=== PATIENT | male | born 1970 | race Caucasian/White ===

== ENCOUNTER 2019-04-02 18:19 | Emergency (ER) | payer OTHER ==
[~2019-04-02] VITALS: Ht 170.2 cm; Wt 113.4 kg
[2019-04-02 18:27] VITALS: BP 146/79
--- NOTE | 2019-04-02 18:34 | NUR ---
WHEELCHAIR ASSISTED PT TO WAIT IN THE LOBBY.
--- NOTE | 2019-04-02 19:11 | NUR ---
PT TAKEN TO BED 5 VIA W/C.
--- NOTE | 2019-04-02 19:15 | NUR ---
48 Y/O PT. C/O INTERMITTENT SHARP MEDIAL AREA PAIN OF RIGHT KNEE 8/10 FOR ONE WEEK. PT. STATES THAT THE PAIN WORSENED TODAY AND EXCERBATED BY WALKING OR BEARING WEIGHT. DENIES TRAUMA OR INJURY TO THE RIGHT KNEE, PT REPORTS HE USED HIS RIGHT LEG MORE AT WORK. NO OBVIOUS EDEMA NOTICED. PEDAL PULSES +2. ERMD MADE AWARE OF STATUS. SIDE [id number]. WILL CONTINUE TO MONITOR. PMH: HEART MURMURS MEDS: DENIES
[2019-04-02] MEDS ORDERED: KETOROLAC 60 MG/2 ML VIAL IM ONE (20:50)
--- NOTE | 2019-04-02 21:45 | NUR ---
PT RIGHT KNEE WRAPPED WITH TWO 6 INCH YESSICA WRAPS CMS CHECK BEFORE AND AFTER AND WNL
[2019-04-02 22:13] VITALS: BP 146/79
--- NOTE | 2019-04-02 22:13 | NUR ---
Patient discharged with v/s stable. Written and verbal after care instructions given and explained. Patient alert, oriented and verbalized understanding of instructions. Ambulatory with steady gait. All questions addressed prior to discharge. ID band removed. Patient advised to follow up with PMD. Rx of NAPROSYN given. Patient educated on indication of medication including possible reaction and side effects. Opportunity to ask questions provided and answered. DISCHARGED BY DR. HUGO.
== END 2019-04-02 22:13 | disposition home or self-care (01) ==
LOC: MED 18:19
DX: S83.91XA Sprain of unspecified site of right knee, initial encounter (principal); F17.210 Nicotine dependence, cigarettes, uncomplicated; Z71.6 Tobacco abuse counseling; X58.XXXA Exposure to other specified factors, initial encounter; Y92.89 Other specified places as the place of occurrence of the external cause; Y93.89 Activity, other specified; Y99.0 Civilian activity done for income or pay
CPT/HCPCS: 73562; 96372; 99283; J1885

== ENCOUNTER 2019-09-29 15:38 | Emergency (ER) | payer OTHER ==
[~2019-09-29] VITALS: Ht 172.7 cm; Wt 121.6 kg
[2019-09-29 15:46] VITALS: BP 136/83
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
[2019-09-29 17:18] VITALS: BP 136/83
--- NOTE | 2019-09-29 17:19 | NUR ---
Patient discharged with v/s stable. Written and verbal after care instructions given and explained. Patient alert, oriented and verbalized understanding of instructions. Ambulatory with steady gait. All questions addressed prior to discharge. ID band removed. Patient advised to follow up with PMD. Rx of FLEXERIL given. Patient educated on indication of medication including possible reaction and side effects. Opportunity to ask questions provided and answered.
== END 2019-09-29 17:19 | disposition home or self-care (01) ==
LOC: MED 15:38
DX: M79.10 Myalgia, unspecified site (principal); M54.6 Pain in thoracic spine; M54.2 Cervicalgia; F17.200 Nicotine dependence, unspecified, uncomplicated
CPT/HCPCS: 99283

== ENCOUNTER 2021-05-11 14:04 | Emergency (ER) | payer OTHER ==
[~2021-05-11] VITALS: Ht 170.2 cm; Wt 115.2 kg
[2021-05-11 14:18] VITALS: BP 153/88
--- NOTE | 2021-05-11 14:18 | NUR ---
ESCORTED PATIENT TO BED 11.
--- NOTE | 2021-05-11 14:18 | NUR ---
PT SEEN IN TRIAGE.
--- NOTE | 2021-05-11 14:20 | NUR ---
50 Y/O M BIB SELF. PT COMPLAINED OF DRINKING UNKNOWN SUBSTANCE IN BODY. PT STATED UNABLE TO SLEEP AND FEELING PARANOID. DENIES PAIN, N/V, HEADACHE, OR CHEST PAIN. BED IS LOCKED AND LOWEST POSITION. PMH: HEART MURMUR MEDS: DENIES NKA
--- NOTE | 2021-05-11 14:52 | NUR ---
DIAMOND FLYNN AT PATIENT'S BEDSIDE.
--- NOTE | 2021-05-11 15:10 | NUR ---
OBTAINED URINE DIPSTICK
--- NOTE | 2021-05-11 15:38 | NUR ---
DIAMOND FLYNN AT BEDSIDE DISCUSSING FURTHER REGARDING MEDICAL PLANS.
[2021-05-11 16:00] VITALS: BP 153/88
--- NOTE | 2021-05-11 16:00 | NUR ---
Patient discharged with v/s stable. Written and verbal after care instructions given and explained. Patient verbalized understanding. Ambulatory with steady gait. All questions addressed prior to discharge. Advised to follow up with PMD.
== END 2021-05-11 16:00 | disposition home or self-care (01) ==
LOC: MED 14:04
DX: R03.0 Elevated blood-pressure reading, without diagnosis of hypertension (principal); Z00.00 Encounter for general adult medical examination without abnormal findings
CPT/HCPCS: 36415; 81002; 87491; 99283

== ENCOUNTER 2021-10-16 08:28 | Emergency (ER) | payer OTHER ==
[~2021-10-16] VITALS: Ht 172.7 cm; Wt 110.7 kg
[2021-10-16 08:40] VITALS: BP 124/80
--- NOTE | 2021-10-16 08:50 | NUR ---
50/M PRESENTS TO ED WITH C/O ABDOMINAL PAIN AND WEAKNESS SINCE YESTERDAY. PATIENT ALSO REPORTS FEELING "TINGLING" IN BILATERAL LEGS AND FEET, DESCRIBES IT PINS AND NEEDLES. PATIENT DENIES TAKING MEDICATION AT HOME FOR SYMPTOMS, DENIES HEADACHE, DIZZINESS, N/V/D, PATIENT SPEAKING IN FULL CLEAR SENTENCES.
[2021-10-16] MEDS ORDERED: FAMOTIDINE 20 MG TAB PO ONE (09:25)
[2021-10-16] MEDS ORDERED: ALUMINUM HYD/MAG/SIMETHICONE 30 ML UDC PO ONE (09:25)
[2021-10-16] MEDS ORDERED: ACETAMINOPHEN 325 MG TAB PO ONE (09:30)
--- NOTE | 2021-10-16 09:33 | NUR ---
LAB BEDSIDE FOR BLOOD DRAW
[2021-10-16 09:53] LABS: BASOPHILS # (AUTO) 0.1 K/uL (0.00-0.22); BASOPHILS % (AUTO) 0.6 % (0.0-2.0); EOSINOPHILS # (AUTO) 0.2 K/uL (0-0.4); EOSINOPHILS % (AUTO) 1.7 % (0.0-4.0); HEMATOCRIT 47.1 % (36-52); HEMOGLOBIN 15.9 g/dL (12.0-18.0); LYMPHOCYTES # (AUTO) 1.7 K/uL (2.0-11.5); LYMPHOCYTES % (AUTO) 16.4 % (20.5-51.1); MEAN CORPUSCULAR HEMOGLOBIN 31 pg (27-31); MEAN CORPUSCULAR HGB CONC 34 g/dL (33-37); MEAN CORPUSCULAR VOLUME 90.3 fL (80-94); MONOCYTES # (AUTO) 0.8 K/uL (0.8-1.0); MONOCYTES % (AUTO) 7.2 % (1.7-9.3); NEUTROPHILS # (AUTO) 7.7 K/uL (1.8-7.7); NEUTROPHILS % (AUTO) 74.1 % (42.2-75.2); PLATELET COUNT (AUTO) 247 K/uL (140-450); RED BLOOD CELL COUNT(AUTO) 5.22 MIL/uL (4.20-6.10); RED CELL DISTRIBUTION WIDTH 14.6 % (11.6-13.7); WHITE BLOOD COUNT (AUTO) 10.5 K/uL (4.8-10.8)
[2021-10-16 10:11] LABS: ALBUMIN 3.8 g/dL (3.4-5.0); ANION GAP 12.3 (8-16); CARBON DIOXIDE 27.1 mmol/L (21-32); POTASSIUM 4.4 mmol/L (3.5-5.1); THYROID STIMULATING HORMONE 0.85 uIU/mL (0.34-3.74); TOTAL BILIRUBIN 0.6 mg/dL (0.0-1.0)
[2021-10-16 11:00] LABS: APPEARANCE,URINE SL CLOUDY (CLEAR); BILIRUBIN,URINE NEGATIVE (NEGATIVE); BLOOD, URINE 1+ (NEGATIVE); COLOR,URINE YELLOW (YELLOW); LEUKOCYTE ESTERASE ,URINE NEGATIVE (NEGATIVE); NITRITE, URINE NEGATIVE (NEGATIVE); UGLUCOSE NEGATIVE (NEGATIVE)
[2021-10-16 11:23] LABS: WBC,URINE 0-5 /HPF (0-5)
[2021-10-16] MEDS ORDERED: KETO5SOL7 OP (11:32)
[2021-10-16] MEDS ORDERED: FAMO-92 PO (11:32)
[2021-10-16 11:39] VITALS: BP 128/90
--- NOTE | 2021-10-16 11:39 | NUR ---
Patient discharged with v/s stable. Written and verbal after care instructions ABOUT GASTRITIS AND ALLERGIC CONJUNCTIVITIS given and explained. Patient alert, oriented and verbalized understanding of instructions. Ambulatory with steady gait. All questions addressed prior to discharge. ID band removed. Patient advised to follow up with PMD. Rx of PEPCID AND KETOTIFEN FUMARATE given. Patient educated on indication of medication including possible reaction and side effects. Opportunity to ask questions provided and answered.
== END 2021-10-16 11:39 | disposition home or self-care (01) ==
LOC: MED 08:28
DX: K29.70 Gastritis, unspecified, without bleeding (principal); H10.13 Acute atopic conjunctivitis, bilateral; F17.210 Nicotine dependence, cigarettes, uncomplicated; Z79.899 Other long term (current) drug therapy
CPT/HCPCS: 36415; 80053; 81001; 83690; 84443; 85025; 87086; 93005; 99284

== ENCOUNTER 2023-10-11 14:09 | Emergency (ER) | payer SELFPAY ==
[~2023-10-11] VITALS: Ht 170.2 cm; Wt 81.6 kg
[~2023-10-11 14:09] MED LIST: FAMO-92 PO; KETO5DRO68 OP
[2023-10-11 14:17] VITALS: BP 172/92; PULSE 80; RESP 18; TEMP 98; O2SAT 99
[2023-10-11 15:53] LABS: ANION GAP 14.9 (8-16); CALCIUM 8.5 mg/dL (8.5-10.1); CARBON DIOXIDE 24.5 mmol/L (21-32); POTASSIUM 3.4 mmol/L (3.5-5.1)
[2023-10-11 15:57] LABS: ALBUMIN 3.9 g/dL (3.4-5.0); BILIRUBIN,DIRECT 0.1 mg/dL (0.0-0.3); TOTAL BILIRUBIN 0.6 mg/dL (0.0-1.0); TOTAL PROTEIN, SERUM 7.9 g/dL (6.4-8.2)
[2023-10-11 16:42] LABS: BASOPHILS % (AUTO) 0.3 % (0.0-2.0); EOSINOPHILS % (AUTO) 0.3 % (0.0-4.0); HEMATOCRIT 44.8 % (36-52); HEMOGLOBIN 15.5 g/dL (12.0-18.0); LYMPHOCYTES # (AUTO) 1.2 K/uL (2.0-11.5); LYMPHOCYTES % (AUTO) 10.7 % (20.5-51.1); MEAN CORPUSCULAR HEMOGLOBIN 30 pg (27-31); MEAN CORPUSCULAR HGB CONC 35 g/dL (33-37); MEAN CORPUSCULAR VOLUME 86.8 fL (80-94); MONOCYTES # (AUTO) 0.9 K/uL (0.8-1.0); MONOCYTES % (AUTO) 8.4 % (1.7-9.3); NEUTROPHILS # (AUTO) 8.9 K/uL (1.8-7.7); NEUTROPHILS % (AUTO) 80.3 % (42.2-75.2); PLATELET COUNT (AUTO) 222 K/uL (140-450); RED BLOOD CELL COUNT(AUTO) 5.16 MIL/uL (4.20-6.10); RED CELL DISTRIBUTION WIDTH 13.5 % (11.6-13.7); WHITE BLOOD COUNT (AUTO) 11.1 K/uL (4.8-10.8)
[2023-10-11] MEDS ORDERED: KETOROLAC 15 MG/ML VIAL ONE (16:52)
[2023-10-11] MEDS: LOPERAMIDE 2 MG CAP PO ONE (17:04)
[2023-10-11] MEDS: NACL 0.9% 1,000 ML IV ONE (17:04)
[2023-10-11] MEDS: KETOROLAC 30 MG/ML VIAL IVP ONE (17:06)
[2023-10-11] MEDS: NACL 0.9% 1,000 ML IV SCH (17:11)
[2023-10-11 17:23] LABS: APPEARANCE,URINE CLEAR (CLEAR); BILIRUBIN,URINE NEGATIVE (NEGATIVE); BLOOD, URINE 1+ (NEGATIVE); COLOR,URINE YELLOW (YELLOW); LEUKOCYTE ESTERASE ,URINE NEGATIVE (NEGATIVE); NITRITE, URINE NEGATIVE (NEGATIVE); PH,URINE 5.5 (5.0-9.0); PROTEIN,URINE NEGATIVE (NEGATIVE); UGLUCOSE NEGATIVE (NEGATIVE); UROBILINOGEN,URINE 0.2 EU/dL (0.2 - 1)
[2023-10-11 17:33] LABS: WBC,URINE 0-5 /HPF (0-5)
[2023-10-11 17:34] LABS: BACTERIA,URINE FEW /HPF (None Seen); MUCUS,URINE 1+ /LPF (None Seen); SQUAMOUS EPITHELIAL CELL,UR 4-10 (MOD) /LPF (0-3 (FEW)); TRICHOMONAS,URINE None Seen /HPF (None Seen); YEAST,URINE None Seen /HPF (None Seen)
[2023-10-11] MEDS ORDERED: FAMO-90 PO (17:41)
[2023-10-11 18:10] VITALS: BP 120/63; PULSE 78; RESP 15; TEMP 98; O2SAT 97
== END 2023-10-11 18:10 | disposition home or self-care (01) ==
LOC: MED 14:09
DX: R19.7 Diarrhea, unspecified (principal); R10.30 Lower abdominal pain, unspecified; M54.50 Low back pain, unspecified; Z79.899 Other long term (current) drug therapy
CPT/HCPCS: 36415; 74176; 80048; 80076; 81001; 82150; 83690; 83735; 85025; 87040; 96361; 96374; 99285; J1885; J7030